=== PATIENT | male | born 1975 | race Caucasian/White ===

== ENCOUNTER 2023-07-01 19:08 | Emergency (ER) | payer OTHER, SELFPAY ==
--- NOTE | ~2023-07-01 | CT_ITS ---
EXAMINATION: CT abdomen pelvis wo con DATE: 07/01/2023 19:50 INDICATION: Left-sided nephrolithiasis TECHNIQUE: Computed tomography (CT) of the abdomen and pelvis was performed without intravenous contr ast. Automated exposure control and iterative reconstruction technique were employed. The dose-length product was 1664.07 mGy-cm. COMPARISON: None FINDINGS: Calcified left lower lobe nodule and calcified left hilar lymph nodes and a few hepatic and splenic c alcific lesions consistent with old granulomatous disease. Heart size is normal. No pericardial or pl eural effusion. Gallbladder, pancreas, right kidney and bilateral adrenal glands are normal. 4 mm sto ne at the left ureteropelvic junction with mild left hydronephrosis. No other urolithiasis. Decompres sed bladder is unremarkable. Bowels including the appendix are normal. No bowel obstruction. No free intraperitoneal gas or fluid. No pathologically enlarged abdominal or pelvic lymphadenopathy. Moderat e thoracic and mild lumbar spondylosis. IMPRESSION: 1. 4 mm obstructing stone at the left ureteropelvic junction with mild left hydronephrosis. Reviewed, dictated and finalized at location A. IMPRESSION: 1. 4 mm obstructing stone at the left ureteropelvic junction with mild left hyd ronephrosis.
[2023-07-01 19:19] VITALS: BP 135/100; PULSE 83; RESP 20; TEMP 36.8; O2SAT 98
--- NOTE | 2023-07-01 19:25 | PC.NURSE ---
Addendum entered by Dora Longo RN 07/01/23 19:37: Seen and medicated around 1200 today Original Note: Pt pulled up CT and ultrasound report from [facility] [place]. She states he received 2L bolus of IVF, two doses of IV fentanyl at 25 mcg and another dose of 50 mcg, as well as toradol and zofran.
[2023-07-01 19:31] VITALS: BP 136/96; PULSE 87; RESP 20; O2SAT 99
--- NOTE | 2023-07-01 19:45 | ED.GENADULT ---
HPI - General Adult General Chief complaint: Urogenital-Male Stated complaint: L kidney stone Time Seen by Provider: 07/01/23 19:13 History of Present Illness HPI narrative: This is a 48-year-old male presenting ED with left-sided flank pain. Patient was diagnosed with a 5 mm kidney stone at an outside hospital 1 week ago. Since then he has been taking intermittent [place] for pain control. He has been having episodes of severe pain has been seen the outside hospital multiple times including earlier today. At his visit earlier today he had an ultrasound which was indeterminate for hydro nephrosis. He received Toradol and fentanyl with improvement symptoms. However when he got back home he started to have recurrent vomiting. Patient denies fevers chills nausea vomiting diarrhea. He does not have a urologist. Related Data Allergies Allergy/AdvReac Type Severity Reaction Status Date / Time Penicillins Allergy Unknown Verified 07/01/23 19:19 alprazolam [From Xanax] AdvReac Agitated Verified 07/01/23 19:19 Exam Narrative: APPEARANCE: Patient appears uncomfortable Head: atraumatic. EYES: EOMI, NOSE: Atraumatic NECK: Trachea midline RESPIRATORY: No increased rate of breathing CARDIOVASCULAR: RRR, ABDOMINAL: Left CVA tenderness, rest the abdomen is soft nontender no guarding rebound MUSCULOSKELETAl: No obvious deformities NEURO: Alert. Moving 4/4 extremities SKIN:: Warm, dry. Normal color PSYCHIATRIC: Normal affect Course Vital Signs Vital signs: Vital Signs Temperature 98.3 F 07/01/23 19:19 Pulse Rate 83 07/01/23 19:19 Respiratory Rate 20 07/01/23 19:19 Blood Pressure 135/100 H 07/01/23 19:19 Pulse Oximetry 98 07/01/23 19:19 Oxygen Delivery Room Air 07/01/23 19:19 Temperature 98.3 F 07/01/23 19:19 Pulse Rate 87 07/01/23 19:31 Respiratory Rate 20 07/01/23 19:31 Blood Pressure 136/96 H 07/01/23 19:31 Pulse Oximetry 99 07/01/23 19:31 Oxygen Delivery Room Air 07/01/23 19:19 Medical Decision Making [facility] Narrative Medical decision making narrative: -Course: 48-year-old male with known kidney stone presenting with increased left flank pain. CT showed a 4 mm stone. Urine showed greater than 100 red blood cells and 6-10 white blood cells and trace leuk esterase. No fevers. White count 12.12. Patient's pain was controlled in the emergency department he was comfortable going home. I discussed an alternate pain regimen with patient as well as stool softeners as constipation seems to be the main reason he was not taking his [place]. Patient will be given a referral to Urology. Given return precautions. -DDX includes but is not limited to: Kidney stone, infected stone, pyelonephritis -Co-morbidities complicating care: History of kidney stones, AFib on Eliquis -Independent interpretation of studies: White count 12.2. Urine showed trace leuk esterase, 6-10 white blood cells and greater than [address] abdomen pelvis showed 4 mm stone at the [facility] -Interventions: 4 mg Zofran, 1 mg Dilaudid, 1 L normal saline -Shared decision making / Disposition: Discharge -RX oxycodone, docusate, senna, cefdinir. Patient has zofran and flomax at home. Vital Signs Vital Signs: Vital Signs Temperature 98.3 F 07/01/23 19:19 Pulse Rate 83 07/01/23 19:19 Respiratory Rate 20 07/01/23 19:19 Blood Pressure 135/100 H 07/01/23 19:19 Pulse Oximetry 98 07/01/23 19:19 Oxygen Delivery Room Air 07/01/23 19:19 Temperature 98.3 F 07/01/23 19:19 Pulse Rate 87 07/01/23 19:31 Respiratory Rate 20 07/01/23 19:31 Blood Pressure 136/96 H 07/01/23 19:31 Pulse Oximetry 99 07/01/23 19:31 Oxygen Delivery Room Air 07/01/23 19:19 Lab Data 07/01/23 19:49 07/01/23 19:49 Labs: Lab Results 07/01/23 Range/Units 19:49 WBC 12.2 H (4.5-10.0) K/mm3 RBC 4.94 (4.6-6.20) M/mm3 Hgb 14.7 (14.0-18.0) g/dL Hct 44.0 (4
[2023-07-01] MEDS: ONDANSETRON INJ 4 MG/2 ML VIAL IV PUSH (19:52)
[2023-07-01] MEDS: SODIUM CHLORIDE 0.9% IV 1,000 ML 999 ML IV CONT (19:52)
[2023-07-01] MEDS: HYDROmorphone HCL INJ (*CRX) 1 MG/ML SYR IV PUSH (19:52)
[2023-07-01 19:55] LABS: Basophils Absolute Auto 0.1 K/mm3 (0.0-0.1); Basophils Percent Auto 0.7 % (0.2-1.2); Eosinophils Absolute Auto 0.2 K/mm3 (0-0.3); Eosinophils Percent Auto 1.9 % (0-4.4); Hemoglobin 14.7 g/dL (14.0-18.0); Immature Granulocyte Absolute 0.04 K/mm3 (0.00-0.031); Immature Granulocyte Percent A 0.3 % (0-0.5); Lymphocytes Absolute Auto 5.31 K/mm3 (0.9-3.2); Lymphocytes Percent Auto 43.5 % (18.3-44.2); Mean Corpuscular HGB Conc 33.4 g/dl (32-36); Mean Corpuscular Hemoglobin 29.8 pg (26-34); Mean Corpuscular Volume 89.1 fl (80-100); Mean Platelet Volume 9.1 fl (7.4-10.4); Monocytes Absolute Auto 0.7 K/mm3 (0.1-0.6); Monocytes Percent Auto 5.6 % (2.6-8.5); Neutrophils Absolute Auto 5.9 K/mm3 (1.3-6.7); Platelet Count Result 423 k/mm3 (150-375); Red Blood Count 4.94 M/mm3 (4.6-6.20); White Blood Count 12.2 K/mm3 (4.5-10.0)
[2023-07-01] MEDS: TAMSULOSIN HCL 0.4 MG CAPSULE PO (20:01)
[2023-07-01 20:08] LABS: Alanine Aminotransferase 18 U/L (6-50); Albumin Level 4.2 g/dL (3.5-5.1); Alkaline Phosphatase 71 U/L (38-126); Anion Gap 6 mmol/L (4-12); Aspartate Amino Transferase 26 U/L (17-59); Bilirubin,Total 0.4 mg/dL (0.2-1.3); Blood Urea Nitrogen 11 mg/dL (9-20); Calcium 9.1 mg/dL (8.4-10.2); Carbon Dioxide 23 mmol/L (22-30); Chloride 112 mmol/L (98-107); Estimated CRCL calculation 133 ml/min; Estimated Glomerular Filt Rate > 60; Glucose 121 mg/dL (65-110); Potassium 3.8 mmol/L (3.4-5.0); Sodium 141 mmol/L (137-145)
[2023-07-01 20:18] LABS: Appearance Urine Clear (Clear); Bacteria Urine None Seen /hpf; Bilirubin Urine Negative (Negative); Blood Urine 3+ (Negative); Color Urine Yellow (Yellow); Glucose Urine UA Negative (Negative); Ketones Urine Trace mg/dL (Negative); Leukocyte Esterase Ur Trace LEU/UL (Negative); Mucus Urine Present /lpf; Need Manual Microscopic Reviewed; Nitrate Urine Negative (Negative); Non Pathogenic Casts 0-2; Protein Urine Negative (Negative); RBC Urine >100 /hpf (0-2); Squamous Epithelial Cell Urine None Seen /hpf (Few)
[2023-07-01 20:22] LABS: Add Urine Microscopic? YES
[2023-07-01 20:50] VITALS: BP 107/71; PULSE 72; RESP 18; O2SAT 98
[2023-07-01 21:18] VITALS: BP 110/69; PULSE 65; RESP 16; O2SAT 97
== END 2023-07-01 21:28 | disposition home or self-care (01) ==
LOC: ANHED 20:52
PROVIDERS: Emergency Provider Emergency Medicine
DX: N13.2 Hydronephrosis with renal and ureteral calculous obstruction (principal); I48.91 Unspecified atrial fibrillation; Z79.01 Long term (current) use of anticoagulants
CPT/HCPCS: 36415; 74176; 80053; 81001; 85025; 87086; 96361; 96374; 96375; 99284; A9270; J1170; J2405; J7030